=== PATIENT | male | born 1995 | race Hispanic/Latino ===

== ENCOUNTER 2018-04-14 13:32 | Emergency (ER) | payer OTHER | END 2018-04-14 16:36 | disposition left against medical advice (07) | LOC: EDH 13:32 | DX: R07.89 Other chest pain (principal); Z53.21 Procedure and treatment not carried out due to patient leaving prior to being seen by health care provider | CPT/HCPCS: 93005 ==

== ENCOUNTER → 2023-04-05 | Emergency (ER) | payer BC | LOC: EDH 11:24 | DX: Z20.3 Contact with and (suspected) exposure to rabies (principal); Z53.21 Procedure and treatment not carried out due to patient leaving prior to being seen by health care provider ==